=== PATIENT | female | born 1995 | race Caucasian/White ===

== ENCOUNTER → 2017-10-17 | Outpatient (CLI) | payer SELFPAY ==
--- NOTE | 2017-10-17 17:56 | RADIOLOGY IMAGING REPORT ---
FACILITY: [facility] PATIENT NAME: Manuela Schreiber : 1995 MR: [id number] V: [id number] EXAM DATE: ORDERING PHYSICIAN: OREN QUINTEROS TECHNOLOGIST: Location: [facility] Patient: Manuela Schreiber : 1995 Visit/Account:[id number] Date of Sevice: 10/17/2017 EXAMINATION: Transabdominal and transvaginal pelvic ultrasound with duplex Doppler evaluation 8 4:06 PM HISTORY: Fallopian tube dysfunction.; LMP: 09/18/2017 COMPARISON STUDIES: none. FINDINGS: Uterus: 6.4 x 3.2 x 4.9 cm Myometrium: negative Endometrium: Negative. 8 mm thickness. Cervix: Single small nabothian cyst. Ovaries: right ovary 2.4 x 4.7 x 2.5 cm, left ovary 1.8 x 3.3 x 2.4 cm, small follicles in the ovarie s. Blood flow is documented in each ovary by Doppler ultrasound. Adnexa: No fallopian tube or other adnexal abnormality evident. Free pelvic fluid: none IMPRESSION: 1. Small follicles in the ovaries. This is not clearly a sonographic pattern of PCOS. 2. Otherwise unremarkable study. Report Dictated By: Ovidio Fu MD at 10/17/2017 5:48 PM Report E-Signed By: Ovidio Fu MD at 10/17/2017 5:51 PM WSN:[email or web address]
== END ==
LOC: US 16:01
PROVIDERS: ATTEND Nurse Practitioner Family
DX: N88.8 Other specified noninflammatory disorders of cervix uteri (principal); N84.1 Polyp of cervix uteri
CPT/HCPCS: 76856

== ENCOUNTER 2018-11-05 12:57 | Emergency (ER) | payer OTHER ==
--- NOTE | 2018-11-05 12:59 | ER Report ---
History and Physical Time Seen By MD: 12:59 HPI/ROS CHIEF COMPLAINT: Laceration HISTORY OF PRESENT ILLNESS: Is a 22-year-old female who presents to the emergency department for laceration of her left thumb. Patient was using some kitchen equipment and cut the tip of her thumb off in a life enrichment assistant. Bleeding is controlled at this time, patient has pain, but tolerating well. CMS intact distal to the injury. No other complaints. No nausea or vomiting. No chest pain or shortness of breath. REVIEW OF SYSTEMS: Respiratory: No cough, no dyspnea. Cardiovascular: No chest pain, no palpitations. Gastrointestinal: No vomiting, no abdominal pain. Musculoskeletal: No back pain. Integumentary: As above. Allergies: Coded Allergies: No Known Drug Allergies (Unverified , 11/05/18) Home Meds Reported Medications [place]-3 Fatty Acids/Fish Oil (OMEGA 3 1,000 MG SOFTGEL) 1 Each Capsule, 1 EACH PO QDAY, CAPSULE 11/05/18 Past Medical/Surgical History The patient has no significant past medical or surgical history. Reviewed Nurses Notes: Yes Constitutional Vital Sign - Last 24 Hours 11/05/18 13:00 Temp 98.1 Pulse 120 Resp 18 B/P (MAP) 140/99 Pulse Ox 97 O2 Delivery Room Air Physical Exam General Appearance: The patient is alert, has no immediate need for airway protection and no current signs of toxicity. Eyes: Pupils equal and round no injection. Respiratory: Chest is non tender, lungs are clear to auscultation. Cardiac: regular rate and rhythm. Gastrointestinal: Abdomen is soft and non tender, no masses, bowel sounds normal. Musculoskeletal: Neck: Neck is supple and non tender. Extremities have full range of motion and are non tender. Skin: Avulsion injury to the tip of the left thumb, nonsuturable. DIFFERENTIAL DIAGNOSIS: After history and physical exam differential diagnosis was considered for laceration, avulsion. Medical Decision Making EKG/Imaging Imaging Location: [facility] Patient: Manuela Schreiber : 1995 Visit/Account:[id number] Date of Sevice: 11/05/2018 Exam type: FINGER LEFT THUMB History: avulsion, ?bone Comparison: None. Findings: There is a 6 mm in diameter ovoid opaque density projecting in the soft tissues along the volar aspect of the distal left thumb. This may represent a foreign body or area of hemorrhage. No underlying bony fracture seen. Also noted along the lateral aspect of the proximal left index finger is an additional 5 mm faintly opaque density with the same differential diagnosis IMPRESSION: 1. No underlying fracture left thumb is seen. There is an opaque density seen in the soft tissues along the volar aspect of the distal left thumb possibly representing foreign body or hematoma. A similar finding is seen in the soft tissues along the lateral aspect of the proximal left index finger Report Dictated By: Nohemy Landa MD at 11/05/2018 2:30 PM Report E-Signed By: Nohemy Landa MD at 11/05/2018 2:32 PM WSN:[email or web address] ED Course/Re-evaluation ED Course The patient was admitted to room. A history and physical were obtained. Differential diagnoses were considered. An x-ray of the thumb showing no bony involvement. The wound was blocked, irrigated and scrubbed, as this is an avulsion injury there is no indication for suturing at this time. The wound was dressed with Surgicel and a pressure dressing. Patient was instructed to monitor closely for signs of infection, take ibuprofen or Tylenol as a for aches and pains. Change dressing as needed, follow up with her primary care provider as needed, return to the ER for any other concerns or worsening symptoms. Patient was in agreement with this plan of care and discharged home. Decision to Disposition Date: Nov 05, 2018 Decision to Disposition Time: 14:24 Depart Departure Latest Vital Signs Vital Signs Date Time Temp Pulse Resp B/P (MAP) Pulse Ox O2 Delivery O2 Flow Rate FiO2 11/05/18 13:00 98.1 120 18 140/99 97 Room Air Impression: Primary Impression: Skin avulsion Condition: Improved Disposition: HOME OR SELF-CARE Patient Instructions: Acute Wound Care (ED) Additional Instructions: Keep wound clean and dry for 48 hours. There is no indication for antibiotics at this time, but be sure to monitor for signs of infection; redness, swelling, heat, discharge, increasing pain or red streaking. Take Tylenol or Ibuprofen as needed for pain. Return to the ER with any concerns. You may change dressing as needed. MICHELE BARBOSA [employer] Nov 05, 2018 12:59
[2018-11-05 13:00] VITALS: BP 140/99
[2018-11-05] MEDS ORDERED: OMEG-96 PO (13:02)
[2018-11-05] MEDS ORDERED: DIPHTH/TETANUS/ACEL. PERTUSSIS IM ONLY ONE (13:15)
--- NOTE | 2018-11-05 14:36 | RADIOLOGY IMAGING REPORT ---
FACILITY: [facility] PATIENT NAME: Manuela Schreiber : 1995 MR: [id number] V: [id number] EXAM DATE: ORDERING PHYSICIAN: MICHELE BARBOSA TECHNOLOGIST: Location: [facility] Patient: Manuela Schreiber : 1995 Visit/Account:[id number] Date of Sevice: 11/05/2018 Exam type: FINGER LEFT THUMB History: avulsion, ?bone Comparison: None. Findings: There is a 6 mm in diameter ovoid opaque density projecting in the soft tissues along the volar aspec t of the distal left thumb. This may represent a foreign body or area of hemorrhage. No underlying bony fracture seen. Also noted along the lateral aspect of the proximal left index finger is an abbey tional 5 mm faintly opaque density with the same differential diagnosis IMPRESSION: 1. No underlying fracture left thumb is seen. There is an opaque density seen in the soft tissues along the volar aspect of the distal left thumb p ossibly representing foreign body or hematoma. A similar finding is seen in the soft tissues along t he lateral aspect of the proximal left index finger Report Dictated By: Nohemy Landa MD at 11/05/2018 2:30 PM Report E-Signed By: Nohemy Landa MD at 11/05/2018 2:32 PM WSN:[email or web address]
== END 2018-11-05 14:28 | disposition home or self-care (01) ==
LOC: ER 13:00
DX: S61.002A Unspecified open wound of left thumb without damage to nail, initial encounter (principal); W45.8XXA Other foreign body or object entering through skin, initial encounter
CPT/HCPCS: 90471; 90715; 99283

== ENCOUNTER → 2019-02-04 | Outpatient (CLI) | payer OTHER ==
[~2019-02-04] MED LIST: OMEG-96 PO
[2019-02-04 16:23] LABS: PLATELET COUNT, AUTOMATED 289 K/uL (150-450)
== END ==
LOC: LAB 15:38
PROVIDERS: ATTEND Nurse Practitioner Family
DX: M25.531 Pain in right wrist (principal); R22.31 Localized swelling, mass and lump, right upper limb; L53.9 Erythematous condition, unspecified
CPT/HCPCS: 36415; 84550; 85025